=== PATIENT | female | born 1945 | race Caucasian/White ===

== ENCOUNTER 2017-02-21 23:29 | Inpatient (IN) | payer MEDICARE, MEDICAID ==
[~2017-02-21] VITALS: Ht 161.3 cm; Wt 98.6 kg
[~2017-02-21 23:29] MED LIST: CYCL10TA9 PO; DICY10CA13 PO; LEVO25TA5 PO; LOSA1TAB69 PO; METO50TA3 PO; OXYC10TA69 PO; RANI150T11 PO; ROSU5TAB PO; SERT50TA9 PO; TRAZ-115 PO
[2017-02-22] VITALS (9 sets, daily range): BP systolic 125–157; BP diastolic 56–79; PULSE 57–68; RESP 12–18; O2SAT 93–100
[2017-02-22] MEDS ORDERED: Senna-Docusate 8.6-50 mg Tablet PO PRN (01:50)
[2017-02-22] MEDS ORDERED: Atropine 1 mg/10 mL (Code) Syringe IVPUSH PRN (01:50)
[2017-02-22] MEDS ORDERED: Polyethylene Glycol (PEG) 17 Gm Powder PO PRN (01:50)
[2017-02-22] MEDS ORDERED: Alum-Mag Hydrox-Simeth 30 mL Suspension PO PRN (01:50)
[2017-02-22] MEDS ORDERED: Albuterol-Ipratropium 3 mL Inhalation Solution NEB PRN (02:15)
[2017-02-22] MEDS ORDERED: Heparin 5,000 Unit/mL Inj IVPUSH PRN (02:15)
[2017-02-22] MEDS ORDERED: Heparin 25K Unit/500mL 0.45 NS 25,000 UNIT in IV Premix 1 EACH IV SCH (02:15)
--- NOTE | 2017-02-22 02:46 | PCM.HPMED ---
Subjective Date of Service Feb 22, 2017 Primary Provider: Admitting Physician: Yadira Calero MD Primary Care Physician: Suzanne Gallardo PA-C Attending Physician: Yadira Calero MD Chief Complaint: chest pain, sob History of Present Illness: 71-year-old female with history of CAD status post stenting, atrial fibrillation status post ablation, hypothyroidism, hypertension, history of TIAs , TRIXIE, and asthma who presents as a transfer from [facility] for evaluation of left- sided chest pain and shortness of breath 2 weeks duration. Patient reports that in the past few weeks she has been feeling more lethargic. She has noticed that she gets very short of breath just walking across her living room or with mild exertion. She has also been having some moderate left-sided chest pain that radiates to her left shoulder and arms. She describes the pain as heavy and pressure-like. She reports that they occur intermittently throughout the day, but is associated with exertion, and lasts generally 20 minutes after she rests. She has also noticed some associated nausea and diaphoresis with these episodes. She has been using her nitroglycerin once or twice a week, which does help to relieve the pain. She also reports about a 10 pound weight gain in the last month or so. She reports she has been compliant on her medications, sleeps on one to two pillows, and occasionally uses her CPAP. She denies any recent illnesses, and reports only using her rescue inhaler 2-3 times a week. She denies any fevers, cough, abdominal pain, or headache. At [facility], her EKG showed a rate of 68 with a LAFB, LVH, and no acute changes. Her UA and CBC was benign except for mild thrombocytopenia which is chronic for her. Her CMP does show mildly elevated LFTs, which again is chronic for her. Her troponin I was negative, and her CK-MB percent was negative. Her BNP was noted to be 53. Her last echo was in March 2016 which only showed left ventricular hypertrophy with an EF of 70%, she also had a stress test that was low risk. Case was discussed with Dr. Bolivar by the ED physician, there was some concerns for ACS so patient was started on a heparin bolus, given full dose aspirin and transferred to this facility for cardiac cath tomorrow Review of Systems: Comprehensive review of systems was conducted with the patient and found to be negative except as noted above in HPI. Allergies Coded Allergies: sulfamethoxazole (Verified Allergy, Severe, HIVES, 12/17/11) trimethoprim (Verified Allergy, Severe, HIVES, 12/17/11) Sulfa (Sulfonamide Antibiotics) (Verified Allergy, Unknown, HIVES, 01/12/15) [facility] 02/21/2015 aspirin 81 mg chewable tablet chew 1 tablet by oral route every day cranberry Take 1 tablet by oral route once daily 09/19/2016 cyclobenzaprine 5 mg tablet take 1 tablet by oral route 3 times every day 11/16/2016 dicyclomine 10 mg capsule take 2 capsule by oral route 2 times every day as needed 11/16/2016 duloxetine 30 mg capsule,delayed release take 3 capsule by oral route every day 05/17/2016 Flonase 50 mcg/actuation nasal spray,suspension spray 2 spray by intranasal route every day in each nostril 09/19/2016 Hyzaar 50-12.5 Tablet TAKE 1 TABLET ONCE DAILY. 11/16/2016 ibuprofen 800 mg tablet TAKE 1 TABLET BY MOUTH EVERY 8 HOURS WITH FOOD 12/28/2015 ketoconazole 2 % topical cream apply by topical route every day to the affected area(s) 03/28/2016 LEVOTHYROXINE SODIUM 25 MCG TABLET TAKE 1 TABLET ONCE DAILY. 01/25/2016 lidocaine 3 % lotion apply by topical route 3 times every day to the affected area(s) 02/01/2016 loratadine 10 mg tablet take 1 tablet by oral route every day 02/21/2015 magnesium chloride 64 mg tablet,delayed release 1 pill twice a day 06/06/2016 metoprolol tartrate 50 mg tablet take one and a half pill in the morning and one pill at night 04/17/2016 nitroglycerin 0.[address] 1 tablet under tongue every 5 min if needed for chest pain; call 911 if still hurting after 3 pills 11/16/2016 nystatin 100,000 unit/gram topical cream apply by topical route 2 times every day to the affected area(s) 01/23/2017 OxyContin 15 mg tablet,crush resistant,extended release 1 po q 12 hrs prn 07/06/2016 POLYETHYLENE GLYCOL 3350 17G/DOSE POWDER TAKE ONE CAPFUL (17 GRAM) BY MOUTH TWICE DAILY DIRECTED BY PHYSICIAN. 10/22/2016 trazodone 50 mg tablet Take 2 tablets oral route every night before bedtime. 11/19/2016 Ventolin HFA 90 mcg/actuation aerosol inhaler inhale 2 puff by inhalation route every 4 - 6 hours as needed 06/16/2016 Zantac 150 Mg Tablet TAKE 1 TABLET TWICE DAILY. 03/28/2016 Zofran 8 mg tablet take 1 tablet by oral route 3 times every day PMH 1. Coronary artery disease, status post stent to her right coronary artery in September 2002. Also with a heart catheterization in December 2008, which showed a patent stent and minimal other coronary artery disease. 2. Hyperlipidemia. 3. Hypertension. 4. Atrial fibrillation, status post atrial fibrillation ablation x2, one here in December 2008 and one in [place], she thinks approximately 1-1/2 to 2 years ago. 5. Spinal stenosis. 6. Fibromyalgia. 7. Hypothyroidism. 8. Obesity. 9. history of TIAs 10. Osteoarthritis. 11. Obstructive sleep apnea on CPAP. 12. Chronic mild Asthma 13. Chronic elevated LFTs Surgical History 1. Lumbar spine surgery for spinal stenosis. 2. Cardiac ablations for atrial fibrillation, coronary stents. 3. Breast implants which have been extracted 4. Hysterectomy. 5. Appendectomy and Cholecystectomy Family History Her mother at the age of 73 with congestive heart failure. Social History Hx Alcohol Use: No Hx Substance Use: No Hx Tobacco Use: No Smoking Status: Unknown if Ever Smoker Living Arrangement: with Family Exam Vital Signs Vital Sign - Last Date Time Temp Pulse Resp B/P Pulse Ox O2 Delivery O2 Flow Rate FiO2 02/22/17 01:23 36.9 68 17 157/71 98 Room Air Exam General: Obese elderly female who appears in no acute distress while laying down flat in bed HEENT: Normocephalic, atraumatic. PERRLA, Anicteric sclerae, moist conjunctivae , and no lid lag. Oropharynx free of erythema and cobble stoning with moist mucosa. Neck: Supple with full range of motion. No jugular venous distension. Cardiovascular: Regular rate and rhythm with soft systolic murmur Pulmonary: Mild bibasilar rales with mild upper lung expiratory wheezes bilaterally, no rhonchi is noted, normal respiratory effort Abdomen: Bowel tones present. Soft, nontender, nondistended. No hepatosplenomegaly or masses appreciated. Extremities: No clubbing, cyanosis, edema, or lymphadenopathy appreciated. Skin: Normal temperature, turgor, and texture; no rash, ulcers, or subcutaneous nodules appreciated. Neurological: Cranial nerves grossly intact. Normal muscle strength, tone, and bulk. Reflexes, coordination, and sensory function within normal limits. Psychiatric: Normal mood and affect. Alert and oriented to person, place, and time. Cooperative and pleasant Lab and Diagnostics Cardiac Echo Impressions /FROM 03/2016 Ordering Physician: Maryan Peter Performed By: Mary Ward Referring Physician: ASHLEY GALLARDO PA-C Interpretation Summary Left ventricular wall thickness is mildly increased. The ejection fraction is estimated to be 70-75%. Left ventricular wall motion is normal. Spectral Doppler of the mitral valve is reversed, with an E/A wave ratio < 1.0. The right ventricle grossly appears normal in size with probable normal systolic function. The left atrium is mildly dilated. Right atrial size is normal. There is no significant valvular heart disease. The ascending aorta is mildly enlarged. Compared to prior study, 04/07/2012, there are no significant changes. Assessment & Plan 71-year-old female with history of CAD status post stenting, atrial fibrillation status post ablation, hypothyroidism, hypertension, history of TIAs , TRIXIE, and asthma who presents as a transfer from [facility] for evaluation of left- sided chest pain and shortness of breath 2 weeks duration. Chest pain, POA -Patient's presentation is suspicious for unstable angina. No acute EKG changes noted by ED physician at [facility] -Will order EKG here for comparison -Placed on telemetry for CV monitoring -Cardiology consulted -Currently on cardiac heparin drip -Patient is NPO for possible Cath in the AM -Will Trend Troponin. First Trop and CKMB at [facility] was negative at 2049 on 02/21 -NTG SL and IV Morphine prn chest pain Shortness of breath, POA -With the exertional association and weight gain, may be due to progression to heart failure, but may also be due to mild asthma exacerbation or deconditioning -Chest x-ray at [facility] was read as no acute cardiopulmonary disease. Patient currently saturating well on room air with no signs of dyspnea at rest -We will resume patient's home inhalers and start Duonebs as needed -Consider physical therapy consultation after procedure CAD status post stenting, POA -Patient does not appear to be on a lipid lowering agent. 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 Pain Evaluation: Adequate Pain Control VTE Prophylaxis: Other (heparin drip) Resuscitation Status: CPR: Attempt Resuscitation Attending Statement Pt seen and examined by myself and agree with above plan. Karsten Foley DO Feb 22, 2017 02:14 Yadira Calero MD Feb 22, 2017 06:15
[2017-02-22 02:50] LABS: BASOPHILS % (AUTO) 0.2 % (0-3); EOSINOPHILS % (AUTO) 1.3 % (0-5); Mean Corpuscular Hemoglobin 31.2 pg (27.0-35.0); Mean Corpuscular Volume 87.3 fL (81-100); NEUTROPHILS % (AUTO) 43.8 % (40-74); Platelet Count 124 bil/L (150-400)
[2017-02-22 03:06] LABS: INR 1.07 ratio
[2017-02-22] MEDS: oxyCODONE ER 10 mg ER12 Tablet PO SCH ×4 (03:21→20:30)
[2017-02-22 03:33] LABS: Magnesium 1.7 mg/dL (1.6-2.6); TROPONIN T 0.01 ug/L (0.0-0.011)
--- NOTE | 2017-02-22 03:37 | NUR ---
Admit Admitted to 3014 via EMS from [facility] for c/o CP with radiation to left arm. Denies CP or discomfort since arrival to hospital. Tele SR. Able to ambulate from stretcher to bed. RA without c/o SOB but does report TROTTER and productive cough over several weeks. Heparin gtt initiated prior to arrival to hospital at 1200units/hr and infusing into left wrist IV. c/o generalized chronic pain for which Oxycontin was given and awaiting effectiveness. NPO pending cardiology consult. Unable to recall home medications at this time. Personal belongings at bedside per patient request. Educated supervisory air intercept controller light use with return demonstration.
[2017-02-22] MEDS ORDERED: oxyCODONE ER 10 mg ER12 Tablet PO SCH (08:30)
[2017-02-22] MEDS: Ondansetron 2 mg/mL 2 mL Inj IVPUSH PRN ×2 (08:37→22:19)
[2017-02-22] MEDS: Sodium Chloride LOK Flush 10 mL Syringe IVFLUSH SCH ×2 (08:39→16:30)
--- NOTE | 2017-02-22 08:56 | NUR ---
Heparin gtt PTT result: 89.8. Current rate is 1200units/hr (24ml/hr). Per Heparin protocol, decrease rate by 50units/hr. New rate 1150units/hr (23ml/hr). Next PTT in 6 hours.
--- NOTE | 2017-02-22 13:50 | NUR ---
DC Heparin gtt Per hospitalist, dc Heparin gtt. Pt ready for stress test, heparin gtt dc'd per order.
[2017-02-22] MEDS ORDERED: OXYC15TA73 PO (14:11)
[2017-02-22] MEDS ORDERED: CYCL5TAB PO (14:11)
[2017-02-22] MEDS ORDERED: DULO30CA50 PO (14:11)
[2017-02-22] MEDS ORDERED: ASPI-973 PO (14:11)
[2017-02-22] MEDS ORDERED: CRAN400C PO (14:11)
[2017-02-22] MEDS ORDERED: IBUP800T28 PO (14:19)
[2017-02-22] MEDS ORDERED: FLUT15.88 NASAL (14:19)
[2017-02-22] MEDS ORDERED: LOSA1TAB3 PO (14:19)
[2017-02-22] MEDS ORDERED: LIDO15CR9 TP (14:19)
[2017-02-22] MEDS ORDERED: KTC2C15 TOPICAL (14:19)
[2017-02-22] MEDS ORDERED: LIDO5CRE17 TOPICAL (14:19)
[2017-02-22] MEDS ORDERED: METO50TA3 PO (14:39)
[2017-02-22] MEDS ORDERED: NYST15CR TOPICAL (14:39)
[2017-02-22] MEDS ORDERED: LORA10CA9 PO (14:39)
[2017-02-22] MEDS ORDERED: MAGN64TA7 PO (14:39)
[2017-02-22] MEDS ORDERED: NYST1000 PO (14:39)
[2017-02-22] MEDS ORDERED: NITR0.4T6 SL (14:39)
[2017-02-22] MEDS ORDERED: POLY510P31 PO (14:47)
[2017-02-22] MEDS ORDERED: ONDA-54 PO (14:47)
[2017-02-22] MEDS ORDERED: ALBU90AE IH (14:47)
--- NOTE | 2017-02-22 14:54 | NUR ---
Off unit Pt off unit to stress test, pilot plant research technician aware. Addendum: 02/22/17 at 1730 by ZEB MIXON RN Pt back on unit at ~1610. infrastructure tech notified.
--- NOTE | 2017-02-22 23:08 | NUR ---
CHEST PAIN Pt complained of chest pain 8/10 and nausea. Stat Ekg ordered. Vitals: 135/78, HR 66, RR 18, RA sats 99% Nitro administered. 1L O2 NC. Morphine and Zofran Administered. Tele, no changes per bus driver/monitor. notified. No new orders at this time. Continuing to monitor. Call light within reach.
--- NOTE | 2017-02-22 23:46 | NUR ---
CHEST PAIN DECREASED Pt chest pain decreased to 2/10. Pt reports, "feeling much better." Pt educated on s/sx of to report. No s/sx of cardiac pain or distress at this time. Care continues. Call light within reach, using appropriately. Friend at bedside. Pleasant and cooperative with care.
[2017-02-23 00:03] VITALS: BP 132/67; PULSE 65; RESP 16; O2SAT 100
[2017-02-23] MEDS: Sodium Chloride LOK Flush 10 mL Syringe IVFLUSH SCH ×3 (00:30→16:54)
[2017-02-23 02:28] LABS: Mean Corpuscular Volume 88.7 fL (81-100)
[2017-02-23 03:06] VITALS: BP 119/79; PULSE 72; RESP 16; O2SAT 99
[2017-02-23 03:16] LABS: Magnesium 1.8 mg/dL (1.6-2.6)
[2017-02-23 05:58] VITALS: PULSE 62
[2017-02-23 08:00] VITALS: PULSE 71
[2017-02-23] MEDS: oxyCODONE ER 10 mg ER12 Tablet PO SCH (09:16)
[2017-02-23 10:25] VITALS: BP 116/66; PULSE 62; RESP 18; O2SAT 95
--- NOTE | 2017-02-23 12:00 | DRSVH ---
PROCEDURE: 2 DAY STRESS TEST Rest and pharmacological stress myocardial perfusion SPECT with gated imaging and ejection fraction RADIOPHARMACEUTICAL: 21.8 mCi Tc-99m tetrafosmin IV at rest and 21 mCi Tc-99m tetrafosmin IV at peak effect of pharmacological stress. [id number]-[id number] was performed. INDICATIONS: CHEST PAIN. TECHNIQUE: Radiopharmaceutical was injected at peak stress test, and also at rest. SPECT images wer e obtained. SPECT myocardial perfusion images were displayed in short axis, horizontal long axis, an d vertical long axis views. Gated images were reviewed using [employer] software. COMPARISON: None. CARDIAC STRESS: A pharmacologic stress test was performed under the supervision of an attending staff, using an infus ion of lexiscan. Hemodynamic data: There is normal blood pressure and heart rate response to pharmacologic stress. Symptoms: The patient reported chest discomfort (no acute ECG changes) Aminophylline: 100 mg EKG: baseline ECG shows sinus rhythm with nonspecific ST changes - no significant change with stress . FINDINGS: Raw data: There is good myocardial uptake of radiotracer. No significant motion artifacts (although minor motion is noted) Left ventricle function: Gated images demonstrate normal left ventricular wall thickening. No segme ntal wall motion abnormalities. Left ventricle resting end diastolic volume is 46 mL. Left ventri phoenix stress ejection fraction is >70% ; normal range is above 45%. Myocardial perfusion: There is a very small area of mildly decreased uptake affecting the mid infero lateral wall that appears fixed on the rest and stress images. Review of gated data suggests that ar tifact may a contributor. Prone images could not be obtained. No other imaging defects appreciated. IMPRESSION: 1. Appropriate hemodynamic response to pharmacologic stress. 2. The patient reported chest discomfort without associated ECG changes. 3. No scintigraphic evidence for significant areas of myocardial ischemia at the level of stress achi eved. 4. Small left ventricular cavity size with normal systolic function. Dictated by: Lillian aMrie M.D. on 02/23/2017 at 11:52 Approved by: Lillian Marie M.D. on 02/23/2017 at 11:58
--- NOTE | 2017-02-23 12:39 | DRSVH ---
[facility] [address] [place] [address] Echocardiogram Report Name: ESTEBAN NUÑEZ PStudy Date : 02/23/2017 Height: 64 in Hospital Exam Location: [facility] Weight: 217 lb Gender: Female BSA: 2.0 m2 : 1945 Age: 71 yrs BP: 119/79 mmHg Reason For Study: CHEST PAIN Ordering Physician: MD Yrn Marie Performed By: Ashutosh Gan Referring Physician: Suzanne Lutz Interpretation Summary 1. Lower limits of normal left ventricular cavity size with mildly increased wall thickness and normal systolic function with an estimated EF of 65 - 70% 2. Normal right ventricular size and systolic function. 3. No evidence for significant valvular pathology Compared to the previous study, no signficant change Procedure: A two-dimensional transthoracic echocardiogram with color flow and Doppler was performed. The study quality was technically adequate. Comparison is made with the echocardiogram of 04/03/16. A contrast injection of Definity was performed to improve assessment of LV function. The subcostal views were difficult to obtain and are suboptimal in quality. The suprasternal notch views were difficult to obtain and are suboptimal in quality. The patient was in normal sinus rhythm during the exam. Left Ventricle: Left ventricular wall thickness is mildly increased. Lower limits of normal cavity size. The ejection fraction is estimated to be 65- 70%. There are no focal wall motion abnormalities. Right Ventricle: The right ventricle is normal in size and function. Atria: The left atrium is mildly dilated. Right atrial size is normal. The interatrial septum is intact with no evidence for an atrial septal defect. Mitral Valve: There is mild mitral annular calcification. The mitral valve leaflets are mildly calcified. There is trace mitral regurgitation. Aortic Valve: The aortic valve is trileaflet. The aortic valve is slightly calcified. The aortic valve opens well. There is trace aortic regurgitation. Tricuspid Valve: The tricuspid valve leaflets are thin and pliable. Pulmonary artery pressures cannot be estimated because of the lack of a measurable TR jet velocity. There is trace tricuspid regurgitation. Pulmonic Valve: The pulmonic valve is normal in structure and function. There is trace pulmonic regurgitation. Great Vessels: The aortic root is normal size. The ascending aorta is mildly enlarged. The ascending aorta diameter is measured at 3.79 cm. The inferior vena cava was not well visualized. Pericardium/ Pleura There is no pericardial effusion. There is no pleural effusion. MMode/2D Measurements & Calculations LVIDd: 3.7 cm LA dimension: 3.6 cm RA long axis Ao root diam LVIDs: 1.8 cm FS: 51.3 % LA A2 area: 22.2 cm RA area Aortic Jxn EPSS: 0.55 cm LA A4 area: 23.2 cm IVSd: 1.2 cm LA length (vol): 5.7 cm : 13.2 cm asc Aorta LVPWd: 1.2 cm LA vol: 76.6 ml RA vol: 32.7 mlDiam: 3.8 cm RA LA vol index: 37.9 ml/m2: 16.1 mm2 LV yang. diameter/BSA LV sys. diameter/BSA (cm/m^2): 1.8 (cm/m^2): 0.89 Doppler Measurements & Calculations Ao V2 max MV E max clif MV E/A: 0.79 PA V2 max : 146.6 cm/sec : 72.6 cm/sec Med Peak E' Clif : 98.2 cm/sec Ao max PG MV A max clif PA mean PG : 8.6 mmHg : 91.4 cm/sec E/E' med: 23.0 Ao mean PG PA Accel Time : 5.2 mmHg : 0.10 sec MV dec time Ao V2 mean PA V2 mean : 0.27 sec : 110.4 cm/sec : 72.5 cm/sec Ao V2 VTI: 30.2 cm PA pr(Accel) : 39.6 mmHg Reading Physician:12:38 PM
--- NOTE | 2017-02-23 12:50 | NUR ---
Ambulation Pt ambulated in the ridley, half the length of the unit. No complains of chest discomfort or pressure. Pt felt weak and fatigued, requesting return to her room. Pt reported felt "slightly dizzy" shortly before getting back inside her room. Sating 95% on RA with a HR of 73. Pt reports "chest tightness" that started following the Echo this morning, complaining the tech had to "push fairly hard" to get a good image. Pt sts "I have Fibromyalgia and arthritis, it really hurts to have my chest pushed on". Pt would like to rest and try again "in a bit" Call light in [place], will continue to monitor. Addendum: 02/23/17 at 1450 by RAISSA GEORGE RN Pt ambulated 1 complete loop of MPC, No complains of increased chest pain/pressure. Pt notes 1 episode of "palpitations" that resolved when she stopped and rested. Continues to reports "chest tightness" that started following completion of Echo. B/P = 147/85. 96% on RA. HR = 77. This RN spoke with tele monitor, pt did have a PVC approx 10 minutes prior to call. Call light in [place], will continue to monitor.
[2017-02-23 14:42] VITALS: BP 147/85; PULSE 76; RESP 20; O2SAT 96
--- NOTE | 2017-02-23 15:03 | NUR ---
Social Work Note - Initial Assessment Bing Gudino is a 71 yr old admitted for chest pain. EMR reviewed: Pt has [employer] health plan and [facility] insurance. Her PCP is Suzanne Lutz PA-C. No LTC or VA benefits. No DPOA - Paperwork given. Readmit score is 4. See attached CM initial assessment. SENIOR UI SOFTWARE ENGINEER met with pt and pt's niece. Introduced D/C planning and explained SW role. Pt lives at home with her brother and niece. She is independent at baseline, uses no DME, Drives. She states she wants to remain in her home. No hx of SNF or HH - Is not interested in HH at this time. Family is able to transport pt home at d/c. Pt denies any needs. SENIOR UI SOFTWARE ENGINEER provided D/C planning checklist and will continue to follow as needs arise. Plan: Home with family in [place] - no needs identified. CHIQUI Khanna Addendum: 02/23/17 at 1628 by SONYA GRIFFITHS Amended: Links added.
--- NOTE | 2017-02-23 17:38 | PCM.DIMED ---
Discharge Instructions Date of Service Feb 23, 2017 Dates of Hospitalization Feb 22, 2017 at 01:03 Discharge Diagnosis Discharge Diagnosis # Acute Chest pain/pressure and dyspnea with exertion - Unclear exact etiology but workup negative for acute myocardial infarction and with negative cardiac stress test - Echocardiogram showing: "EF of 65 - 70%. Normal right ventricular size and systolic function. No evidence for significant valvular pathology. Compared to the previous study, no significant change" # History of CAD status post stenting. Presumed stable with workup as noted above. # Chronic mild asthma # History of Hypertension. Stable # Chronic Obstructive sleep apnea # Chronic thrombocytopenia and elevated LFTs. Stable # Chronic Hypothyroidism. Presumed stable. 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 Stable. Diet Discharge Diet: Low fat, Low Sodium, Heart Healthy Activity Discharge Activity: No restrictions Call your provider Call your provider for: Fever or Chills, Shortness of breath, Bleeding, Chest pain Patient Instructions Patient Instructions Seek immediate medical attention if any new or worsening signs or symptoms occur. Follow-up plan 1. Followup with your primary care provider in 2-6 days 2. Followup with your car mechanic helper in 5-10 days Follow-up Provider: Suzanne Lutz PA-C Provider: Maryan Peter MD, Masoud Feb 23, 2017 17:38
--- NOTE | 2017-02-23 18:25 | NUR ---
Discharge Pt discharged at this time, all belongings gathered and returned to pt. IV D/Cd intact, tele removed. No new scripts given. Discharge packet printed and reviewed with pt. Pt to be transported home in private vehicle driven by niece.
--- NOTE | 2017-02-23 19:14 | PCM.DC.MED ---
Discharge Summary Date of Service Feb 23, 2017 Dates of Hospitalization Date of Hospital Admission Feb 22, 2017 at 01:03 Date of Discharge: Feb 23, 2017 Providers: Admitting Physician: Yadira Calero MD Primary Care Physician: Suzanne Lutz PA-C Attending Physician: Sg Ramirez Diagnosis at Time of Discharge Diagnosis at Time of Discharge # Acute Chest pain/pressure and dyspnea with exertion - Unclear exact etiology but workup negative for acute myocardial infarction and with negative cardiac stress test - Echocardiogram showing: "EF of 65 - 70%. Normal right ventricular size and systolic function. No evidence for significant valvular pathology. Compared to the previous study, no significant change" # History of CAD status post stenting. Presumed stable with workup as noted above. # Chronic mild asthma # History of Hypertension. Stable # Chronic Obstructive sleep apnea # Chronic thrombocytopenia and elevated LFTs. Stable # Chronic Hypothyroidism. Presumed stable. 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 Stable. Procedures Cardiac Echo Impression Date of Service: 02/23/17 1205 Echocardiogram Report Interpretation Summary 1. Lower limits of normal left ventricular cavity size with mildly increased wall thickness and normal systolic function with an estimated EF of 65 - 70% 2. Normal right ventricular size and systolic function. 3. No evidence for significant valvular pathology Compared to the previous study, no signficant change Reading Physician:12:38 PM Other Diagnostics Date of Service: 02/22/17 1208 PROCEDURE: 2 DAY STRESS TEST Rest and pharmacological stress myocardial perfusion SPECT with gated imaging and ejection fraction IMPRESSION: 1. Appropriate hemodynamic response to pharmacologic stress. 2. The patient reported chest discomfort without associated ECG changes. 3. No scintigraphic evidence for significant areas of myocardial ischemia at the level of stress achieved. 4. Small left ventricular cavity size with normal systolic function. Dictated by: Lillian Marie M.D. on 02/23/2017 at 11:52 Approved by: Lillian Marie M.D. on 02/23/2017 at 11:58 Brief History As noted in H&P by Dr. Foley: 71-year-old female with history of CAD status post stenting, atrial fibrillation status post ablation, hypothyroidism, hypertension, history of TIAs , TRIXIE, and asthma who presents as a transfer from [facility] for evaluation of left- sided chest pain and shortness of breath 2 weeks duration. Patient reports that in the past few weeks she has been feeling more lethargic. She has noticed that she gets very short of breath just walking across her living room or with mild exertion. She has also been having some moderate left-sided chest pain that radiates to her left shoulder and arms. She describes the pain as heavy and pressure-like. She reports that they occur intermittently throughout the day, but is associated with exertion, and lasts generally 20 minutes after she rests. She has also noticed some associated nausea and diaphoresis with these episodes. She has been using her nitroglycerin once or twice a week, which does help to relieve the pain. She also reports about a 10 pound weight gain in the last month or so. She reports she has been compliant on her medications, sleeps on one to two pillows, and occasionally uses her CPAP. She denies any recent illnesses, and reports only using her rescue inhaler 2-3 times a week. She denies any fevers, cough, abdominal pain, or headache. At [facility], her EKG showed a rate of 68 with a LAFB, LVH, and no acute changes. Her UA and CBC was benign except for mild thrombocytopenia which is chronic for her. Her CMP does show mildly elevated LFTs, which again is chronic for her. Her troponin I was negative, and her CK-MB percent was negative. Her BNP was noted to be 53. Her last echo was in March 2016 which only showed left ventricular hypertrophy with an EF of 70%, she also had a stress test that was low risk. Case was discussed with Dr. Bolivar by the ED physician, there was some concerns for ACS so patient was started on a heparin bolus, given full dose aspirin and transferred to this facility for cardiac cath tomorrow Hospital Course # Acute Chest pain/pressure and dyspnea with exertion - Unclear exact etiology but workup negative for acute myocardial infarction and with negative cardiac stress test - Echocardiogram showing: "EF of 65 - 70%. Normal right ventricular size and systolic function. No evidence for significant valvular pathology. 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 Stable - Continued home meds # Chronic mild asthma, POA. Sable # Hypertension, POA -Continued home meds # Obstructive sleep apnea, POA -Not on CPAP at home -Consider further workup as outpatient # Chronic thrombocytopenia and elevated LFTs, POA -Both values are at patient's baseline, stable # Hypothyroidism, POA -Continued levothyroxine daily # Chronic pain disorder, POA -Secondary to cervical degeneration -Continued patient's OxyContin twice a day # Insomnia, POA -Continued patient's trazodone Exam Vital Signs (Last) Date Time Temp Pulse Resp B/P Pulse Ox O2 Delivery O2 Flow Rate FiO2 02/23/17 14:42 36.7 76 20 147/85 96 Room Air 02/23/17 10:25 2.00 Exam Lungs CTA bilat. CV: RRR Test 02/22/17 02:35 02/22/17 12:19 02/23/17 02:00 02/23/17 10:00 Neutrophils (%) (Auto) 43.8% (40-74) Lymphocytes (%) (Auto) 41.5% (14-46) Monocytes (%) (Auto) 13.0% (4-12) Eosinophils (%) (Auto) 1.3% (0-5) Basophils (%) (Auto) 0.2% (0-3) Prothrombin Time 11.5sec (8.1-12.5) Prothromb Time International Ratio 1.07ratio Total Bilirubin 0.6mg/dL (0.0-1.2) Aspartate Amino Transf (AST/SGOT) 52U/L (0-50) Alanine Aminotransferase (ALT/SGPT) 75U/L (0-32) Alkaline Phosphatase 71U/L (25-165) Total Protein 6.6g/dL (6.4-8.4) Albumin 3.7g/dL (3.4-5.0) Triglycerides Level 81mg/dL (0-149) Cholesterol Level 145mg/dL (100-199) LDL Cholesterol, Calculated 84.800mg/dL (0-99) VLDL Cholesterol 16.200mg/dL HDL Cholesterol 44mg/dL (>39) Cholesterol/HDL Ratio 3.30 (0.0-4.4) Thyroid Stimulating Hormone (TSH) 2.330uIU/mL (0.450-4.500) Troponin T < 0.010ug/L (0.0-0.011) White Blood Count 4.4th/mm3 (3.8-10.1) Red Blood Count 4.32mil/mm3 (3.90-5.20) Hemoglobin 13.4g/dL (12.0-15.6) Hematocrit 38.3% (35.0-46.0) Mean Corpuscular Volume 88.7fL (81-100) Mean Corpuscular Hemoglobin 31.0pg (27.0-35.0) Mean Corpuscular Hemoglobin Concent 35.0% (32.0-37.0) Red Cell Distribution Width 12.1% (12.3-15.4) Platelet Count 117bil/L (150-400) Activated Partial Thromboplast Time 25.4sec (22.8-33.0) Sodium Level 134mEq/L (134-144) Potassium Level 4.2mEq/L (3.5-5.2) Chloride Level 96mEq/L (97-108) Carbon Dioxide Level 25mmol/L (18-29) Blood Urea Nitrogen 17mg/dL (8-27) Creatinine 0.81mg/dL (0.57-1.00) Estimat Glomerular Filtration Rate 99mL/min (>59) Glucose Level 114mg/dL (60-99) Calcium Level 9.0mg/dL (8.5-10.1) Magnesium Level 1.8mg/dL (1.6-2.6) Hold Urine Received (Received) Discharge Medications Discharge Medications Aspirin (Aspirin) 81 Mg Tablet 81 MG PO DAILY (Reported) Cranberry (Cranberry) 400 Mg Capsule 400 MG PO DAILY (Reported) Duloxetine (Duloxetine) 30 Mg Capsule.dr 90 MG PO DAILY (Reported) Fluticasone Propionate (Fluticasone Propionate) 50 Mcg/Actuation [place].susp 2 SPRAYS NASAL DAILY (Reported) Ibuprofen (Ibuprofen) 800 Mg Tablet 800 MG PO Q8H (Reported) Ketoconazole (Ketoconazole) 15 Gm Cream..g. 1 TOPICAL DAILY (Reported) To affected area(s) Levothyroxine (Levothyroxine) 25 Mcg Tablet 25 MCG PO DAILY (Reported) Lidocaine Cream (Lidocaine Cream) 5 Gm Cream..g. 1 APPLIC TOPICAL TID (Reported ) Lidocaine 3% to affected area(s) Loratadine (Loratadine) 10 Mg Capsule 10 MG PO DAILY (Reported) Losartan/HCTZ 50-12.5 mg (Losartan/HCTZ 50-12.5 mg) 1 Each Tablet 1 TABLET PO DAILY (Reported) Magnesium Chloride (Mag64) 64 Mg Tablet.er 64 MG PO BID (Reported) Metoprolol Tartrate (Metoprolol Tartrate) 50 Mg Tablet 50 MG PO HS (Reported) Metoprolol Tartrate (Metoprolol Tartrate) 50 Mg Tablet 75 MG PO MORNING ( Reported) Nystatin/Triamcin (Nystatin-Triamcinolone Cream) 15 Gm Cream..g. 1 APPLIC TOPICAL BID (Reported) Ondansetron (Ondansetron) 8 Mg Tablet 8 MG PO TID (Reported) Polyethylene Glycol 3350 ([id number]) 17 Gram/Dose Powder 17 GM PO BID (Reported) Ranitidine (Zantac) 150 Mg Tablet 150 MG PO BID (Reported) Trazodone (Trazodone) 50 Mg Tablet 100 MG PO HS (Reported) As needed Albuterol Sulfate (Proair Respiclick) 90 Mcg Aer.pow.ba 2 PUFFS IH Q4-6H PRN PRN For Shortness of Breath (Reported) Cyclobenzaprine (Cyclobenzaprine) 5 Mg Tablet 5 MG PO TID PRN PRN Spasm ( Reported) Dicyclomine (Dicyclomine) 10 Mg Capsule 20 MG PO BID PRN PRN For GI Cramps ( Reported) Nitroglycerin SL (Nitroglycerin SL) 0.4 Mg Tab.subl 0.4 MG SL Q5MIN PRN PRN For Chest Pain (Reported) Oxycodone ER (Oxycontin) 15 Mg Tab.er.12h 15 MG PO Q12Hrs PRN PRN For Pain ( Reported) Followup Plan Disposition: Home Follow-up plan 1. Followup with your primary care provider in 2-6 days 2. Followup with your supervisor customer complaint service in 5-10 days Discharge Diet: Low fat, Low Sodium, Heart Healthy Discharge Activity: No restrictions Patient Instructions Seek immediate medical attention if any new or worsening signs or symptoms occur. Follow-up Provider: Suzanne Lutz PA-C Provider: Maryan Peter MD Time spent 45 min copies to: Suzanne Lutz PA-C; Maryan Peter MDPascualSg Feb 23, 2017 19:14
== END 2017-02-23 18:39 | disposition home or self-care (01) | DRG 313 ==
LOC: MPC 02-22 01:03
PROVIDERS: ADMIT Specialist; ATTEND Internal Medicine
DX: R07.9 Chest pain, unspecified (principal); I25.10 Atherosclerotic heart disease of native coronary artery without angina pectoris; E03.9 Hypothyroidism, unspecified; I10 Essential (primary) hypertension; G47.33 Obstructive sleep apnea (adult) (pediatric); M79.7 Fibromyalgia; M48.00 Spinal stenosis, site unspecified; J45.909 Unspecified asthma, uncomplicated; D69.6 Thrombocytopenia, unspecified; M50.30 Other cervical disc degeneration, unspecified cervical region; G47.00 Insomnia, unspecified; Z95.5 Presence of coronary angioplasty implant and graft; Z86.73 Personal history of transient ischemic attack (TIA), and cerebral infarction without residual deficits; Z79.82 Long term (current) use of aspirin